=== PATIENT | female | born 1975 | race Caucasian/White ===

== ENCOUNTER 2018-06-29 20:01 | Emergency (ER) | payer OTHER, BC ==
[~2018-06-29] VITALS: Ht 170.2 cm; Wt 107.5 kg
[~2018-06-29 20:01] MED LIST: CETI10TA84 PO; FEXO3TAB; LISI-730 PO; MOME50SP5; NAPR-22 PO
[2018-06-29 20:04] VITALS: TEMP 37.3; Ht 170.2 cm; Wt 107.5 kg
[2018-06-29] MEDS ORDERED: TRAMADOL HCL 50 MG HOME PACK PO ONE (20:45)
[2018-06-29] MEDS ORDERED: CEPHALEXIN 500MG HOME PACK 1 EA BTL PO ONE (20:45)
[2018-06-29] MEDS ORDERED: CEPH500C PO (20:48)
[2018-06-29] MEDS ORDERED: TRAM-10 PO (20:48)
[2018-06-29 21:20] VITALS: BP 134/78; PULSE 102; O2SAT 99
--- NOTE | 2018-06-30 00:26 | EMERGENCY ROOM VISIT NOTE ---
History First contact with patient: 20:17 Chief Complaint: TOE PAIN, INJURY Stated Complaint: BROKEN 2 TOES RT FOOT History of Present Illness The patient is a 42 year old female who presents to the Emergency Room with complaints of injuries to her right great and second toe after accidentally dropping a table on her foot today at work. She reports that a desk was being moved on a zaira when it fell and landed on the foot. The patient was seen at the [facility] urgent [facility] [place] where x-rays were performed to find fractures of the 2 toes. She was instructed to come to the emergency department for further reevaluation. She denies any pain on exam, but does report pain rated a 4 out of 10 with weightbearing. She did notice some bleeding from under the nail of the great toe. She also reports that the tip of the toes are swollen and bruised. Review of Systems 10 system review was performed and was negative except for pertinent positives and negatives as indicated in history of present illness Past Medical/Surgical History Medical Problems: (1) Fracture of multiple toes (2) Hypertension Medical Problems: (1) Fracture of multiple toes (2) Hypertension Surgical Problems: (1) History of orthopedic surgery (2) History of partial hysterectomy (3) History of sinus surgery Family History FH: diabetes mellitus FH: hypertension Social History Smoking Status: Never Smoker Alcohol Use: none Marital Status: Housing Status: lives with family Occupation Status: employed Current/Historical Medications Scheduled Cephalexin Monohydrate (Keflex), 500 MG PO TID Cetirizine (Zyrtec), 10 MG PO DAILY Lisinopril (Lisinopril), 2.5 MG PO DAILY Mometasone Furoate (Nasonex), 1 SPRAY NA DAILY Naproxen (Naprosyn), Unknown Dose PO BID Scheduled PRN Tramadol (Ultram), 1 TAB PO Q4H PRN for Pain Miscellaneous Medications Fexofenadine HCl (Mucinex Allergy) Physical Exam Vital Signs Date Time Temp Pulse Resp B/P (MAP) Pulse Ox O2 Delivery O2 Flow Rate FiO2 06/29/18 21:20 102 20 134/78 99 06/29/18 20:04 37.3 110 18 142/89 95 Room Air Physical Exam CONSTITUTIONAL: Healthy and well nourished. Alert and oriented X 3 with positive affect. Patient does not appear in any acute distress, except when removing the bandages. HEENT: Normocephalic, atraumatic. Pupils equal, round and reactive. NECK: Full active range of motion without discomfort. MUSCULOSKELETAL: Examination of the right great toe does not show any lacerations of the soft tissue. The nail plate is not subluxed. There is blood under the nail that is draining from both sides and distal edge of the nail. Examination of the second toe does not show any lacerations. A mild abrasion is noted to the proximal nail fold. Both toes are edematous and ecchymotic. She has no tenderness to palpation of the base of the toes or forefoot. Capillary refill of the toes is less than 2 seconds. INTEGUMENTARY: No rash or other significant dermatologic conditions noted. NEUROLOGIC: Both toes are hyperesthetic. Medical Decision & Procedures ER Provider Diagnostic Interpretation: I did review x-rays that the patient brought on disc, showing fractures through the distal phalanges. No fracture extension to the IP or DIP joints. No joint dislocations noted. Medications Administered Medications (Trade) Dose Ordered Sig/Josr Route Start Time Stop Time Status Last Admin Dose Admin Cephalexin Monohydrate (Keflex 500MG Home Pack) 1 homepack NOW ONCE PO 06/29/18 20:45 06/29/18 20:47 DC 06/29/18 20:55 1 HOMEPACK Tramadol HCl (Ultram Home Pack) 1 homepack UD ONCE PO 06/29/18 20:45 06/29/18 20:47 DC 06/29/18 20:55 1 HOMEPACK ED Course Patient history and physical exam were performed. Nurse's notes were reviewed. Vital signs were reviewed, showing a blood pressure 142/89. The patient denies any pain, although she has notable discomfort when attempting to remove the dressings on the toes. I did review x-rays that the patient brought with her on disc, showing transverse fractures through the distal phalanges of both toes. The patient will be provided a home pack and prescription for Keflex. She was encouraged to ice and elevate the foot for swelling and pain. Ibuprofen and Tylenol as needed for pain. The patient was provided a home pack and prescription for Ultram as needed for breakthrough pain as she was complaining of more pain at the time of discharge. She was advised that she could also paige tape the toes for additional support. She refused a postop shoe or crutches. She was instructed to follow-up with her Worker's Compensation approved orthopedic surgeon for further reevaluation. The patient was happy with plan of care, voiced understanding of all discharge instructions , and denied any significant pain at the time of discharge. Medical Decision [place] Drug Monitoring Program Search Results: patient reviewed within database, no issues identified Medication Reconcilliation Current Medication List: was personally reviewed by me Blood Pressure Screening Patient's blood pressure: Elevated blood pressure Blood pressure disposition: Elevated BP felt to be situational, Did not require urgent referral Impression Primary Impression: Open fracture of right great toe Additional Impressions: Fracture of second toe, right, closed Work related injury Departure Information Dispostion Home / Self-Care Condition FAIR Prescriptions Tramadol (Ultram) 50 Mg Tab 1 TAB PO Q4H Y for Pain, #15 TAB For Initial Treatment Prov: Blake Dalton PA 06/29/18 Cephalexin Monohydrate (Keflex) 500 Mg Cap 500 MG PO TID for 7 Days, #21 CAP Prov: Blake Dalton PA 06/29/18 Forms WORK / SCHOOL INSTRUCTIONS, HOME CARE DOCUMENTATION FORM, IMPORTANT VISIT INFORMATION Patient Instructions My [facility] Moment Additional Instructions Keep the great toe covered with an antibiotic ointment and dressing. Ice and elevate the toes/foot for swelling and pain. Ibuprofen 800 mg and/or Tylenol 1000 mg every 8 hours. You may also alternate these medications for more effective pain relief: Ibuprofen --4 HRS--> Tylenol --4 HRS--> ibuprofen --4 HRS--> Tylenol .... Ultram if needed for worse pain. Follow-up with your Worker's Compensation approved orthopedic surgeon for further reevaluation and management. FOR WORK: Limited time on right foot until reevaluated by orthopedics. Problem Qualifiers Primary Impression: Open fracture of right great toe Encounter type: initial encounter Phalanx: distal Fracture alignment: nondisplaced Qualified Codes: S92.424B - Nondisplaced fracture of distal phalanx of right great toe, initial encounter for open fracture Additional Impressions: Fracture of second toe, right, closed Encounter type: initial encounter Qualified Codes: S92.501A - Displaced unspecified fracture of right lesser toe(s), initial encounter for closed fracture
== END 2018-06-29 21:41 | disposition home or self-care (01) ==
LOC: C.EDB 20:03 → C.EDD 21:41
DX: S92.424B Nondisplaced fracture of distal phalanx of right great toe, initial encounter for open fracture (principal); S92.501A Displaced unspecified fracture of right lesser toe(s), initial encounter for closed fracture; W20.8XXA Other cause of strike by thrown, projected or falling object, initial encounter; Y93.89 Activity, other specified; Y99.0 Civilian activity done for income or pay; I10 Essential (primary) hypertension; Z90.710 Acquired absence of both cervix and uterus; Z83.3 Family history of diabetes mellitus; Z82.49 Family history of ischemic heart disease and other diseases of the circulatory system; Z79.899 Other long term (current) drug therapy

== ENCOUNTER 2021-07-03 15:39 | Observation (INO) ==
--- NOTE | 2021-07-03 16:05 | Emergency Department Note ---
Impression & Plan Leukocytosis, Lower gastrointestinal hemorrhage, BRBPR (bright red blood per rectum) ED Provider Note NAME: IRA LUBIN AGE: 45 SEX: F : 1975 ARRIVES VIA: Ambulance INFORMANT: Patient, ED PROVIDER(S): Kem Duran DO CHIEF COMPLAINT: GI Bleed HPI: Patient is a 45-year-old female who presents to the ER for bright red blood per rectum. She had hemorrhoidectomy performed on June [address] Ruggiero in [facility]. She notes that she was not feeling well today. She had 5 bowel movements of bright red blood. Initially she was tried have a bowel movement it was a large stool. She stopped going and did not pass the stool. Following this she has had 4 additional bowel movements of just blood. Is bright red. She admits to feeling weak and slightly sick to her stomach. No headache or change in vision. No chest pain or shortness of breath. No other exacerbating or remitting factors. She believes she has passed 4 pints of blood. One with each bowel movement. ROS: See above HPI for pertinent positives & negatives. A total of 10 systems reviewed and were otherwise negative. PAST MEDICAL HISTORY:See Below PAST SURGICAL HISTORY:See Below FAMILY HISTORY:See Below SOCIAL HISTORY:See Below HOME MEDICATIONS:See Below ALLERGIES:See Below VITALS:See Below PHYSICAL EXAMINATION: GENERAL: Sitting up in bed, alert, well appearing, well nourished, no distress, non-toxic EYE EXAM: normal conjunctiva. OROPHARYNX: no exudate, no erythema, lips, buccal mucosa, and tongue normal and mucous membranes are moist NECK: supple, no nuchal rigidity, no adenopathy, non-tender LUNGS: Clear to auscultation. Normal chest wall mechanics HEART: no murmurs, S1 normal and S2 normal ABDOMEN: abdomen soft, non-tender, normo-active bowel sounds, no masses, no rebound or guarding. RECTAL: External hemorrhoid present with suture string coming from the rectum. Dried blood around the rectum. UPPER EXTREMITIES: upper extremities are grossly normal. LOWER EXTREMITIES: No pitting edema. NEURO EXAM: Normal sensorium, cranial nerves II-XII grossly intact, normal speech, no gross weakness of arms, no gross weakness of legs. MEDICAL DECISION MAKING: Patient is a 45-year-old female who presents the ER for bright red blood per rectum status post hemorrhoidectomy surgery performed on the second in [facility] established blood was obtained. Labs show leukocytosis of 14,000. No significant anemia. Slight elevation in platelets. INR unremarkable. BMP with mild hypokalemia. LFTs bilirubin and troponin were negative. Covid was negative. Patient was typed and screened. CT abdomen pelvis showed questionab le diverticulitis and air perirectally/perianally. This was discussed with our general surgeon Dr. Mcdonald. He recommended discussion with Dr. Ruggiero who I discussed with over the phone. He agreed with antibiotics and [facility] at [facility]. We discussed with Dr. Mcdonald who admitted the patient. Triage Nursing notes reviewed. Limited review of prior medical records performed Vital Signs: reviewed and remarkable for tachy Differential diagnosis: Differential diagnosis includes etiologies such as diverticulitis, diverticulosis, AVM, coagulopathy, colitis, inflammatory bowel disease, malignancy, Jodie-Lim tear, esophagitis, peptic ulcer disease, variceal bleed, gastritis, epistaxis, fissure, hemorrhoids, as well as others were entertained. ER treatment provided: See below Diagnostics interpreted by me: ECG: Sinus tachycardia rate of 118 Left axis Inferior Q waves Prolonged QTC 461 Cardiac Monitoring: An order was placed for continuous cardiac monitoring. The monitor shows a rate of 112 with sinus rhythm. Laboratory studies: As stated above and show below. Imaging studies: CT abdomen pelvis as discussed above Consultation(s): Discussed with [facility] Ruggiero [facility] colorectal surgery and Dr. Mayur Mcdonald as discussed above Procedures: none Critical Care: None Past Med/Surg History Medical History (Updated 07/03/21 @ 23:02 by Kem Duran DO) Fracture of multiple toes Hypertension Surgical History History of orthopedic surgery History of partial hysterectomy History of sinus surgery Social History Smoking Status: Never smoker Hx Alcohol Use: Yes Alcohol type: beer, wine and hard liquor Hx Substance Use: No Preferred Language: Mauritanian Beliefs That Will Affect Care: None Current Living Situation: Family Other Information That Helps Us Care for You: No Feels Safe at Home: Yes Safety Concerns: Feels Safe At This Time Assistive Devices: Contacts Allergies Allergies Allergy/AdvReac Type Severity Reaction Status Date / Time No Known Allergies Allergy Unknown Verified 07/03/21 15:45 Home Meds Home Medications Medication Instructions Recorded Confirmed aspirin-caffeine 500 mg-32.5 mg 1 tab PO DAILY PRN 08/06/19 07/03/21 tablet (Nirmala [employer]) cetirizine 10 mg tablet 10 mg PO DAILY 08/06/19 07/03/21 chlorthalidone 25 mg tablet 12.5 mg PO QAM 08/06/19 07/03/21 multivitamin-ferrous 1 tab PO QAM 08/06/19 07/03/21 fumarate-folic acid 18 mg-400 mcg tablet (Centrum Women) estradiol 0.05 mg/24 hr weekly 1 patch TRANSDERMAL WK 07/03/21 07/03/21 transdermal patch lisinopril 2.5 mg tablet 2.5 mg PO QAM 07/03/21 07/03/21 metformin 500 mg tablet,extended 2,000 mg PO QAM 07/03/21 07/03/21 release 24 hr omeprazole 20 mg capsule,delayed 20 mg PO QAM 07/03/21 07/03/21 release oxycodone 10 mg tablet 10 mg PO Q4 PRN 07/03/21 07/03/21 Results & Data (ED) Vital Signs Vital Signs - 24 hr 07/03/21 15:46 07/03/21 15:48 07/03/21 15:56 Temperature 37.1 C Temperature Source Oral Pulse Rate 116 H 113 H Pulse Rate [Left Finger] Pulse Rate from SpO2 Sensor 117 H Pulse Rhythm Regular Pulse Strength Normal Respiratory Rate 20 17 Respiratory Effort / Characteristics Non-Labored Respiratory Depth Normal Respiratory Pattern Regular Blood Pressure 131/89 131/89 Blood Pressure [Right Arm] Blood Pressure Mean 103 103 Blood Pressure Mean [Right Arm] Blood Pressure Position Lying Pulse Oximetry 95 97 Oxygen Delivery Method Room Air Room Air Sepsis Recent Fever Within 48 Hours No Sepsis New/Unexplained Change in Mental Status N/A Sepsis Action Taken by Nursing No Action Required 07/03/21 16:01 07/03/21 16:15 07/03/21 16:30 Temperature Temperature Source Pulse Rate 122 H 111 H Pulse Rate [Left Finger] Pulse Rate from SpO2 Sensor 124 H 112 H Pulse Rhythm Pulse Strength Respiratory Rate 17 17 Respiratory Effort / Characteristics Respiratory Depth Respiratory Pattern Blood Pressure 115/62 97/68 L 119/89 Blood Pressure [Right Arm] Blood Pressure Mean 79 77 99 Blood Pressure Mean [Right Arm] Blood Pressure Position Pulse Oximetry 96 94 Oxygen Delivery Method Room Air Room Air Sepsis Recent Fever Within 48 Hours Sepsis New/Unexplained Change in Mental Status Sepsis Action Taken by Nursing 07/03/21 16:45 07/03/21 17:06 07/03/21 17:30 Temperature Temperature Source Pulse Rate 103 H 99 H Pulse Rate [Left Finger] Pulse Rate from SpO2 Sensor 103 H 99 H Pulse Rhythm Pulse Strength Respiratory Rate 16 16 Respiratory Effort / Characteristics Respiratory Depth Respiratory Pattern Blood Pressure 128/88 119/81 Blood Pressure [Right Arm] Blood Pressure Mean 101 93 Blood Pressure Mean [Right Arm] Blood Pressure Position Pulse Oximetry 95 98 97 Oxygen Delivery Method Room Air Sepsis Recent Fever Within 48 Hours Sepsis New/Unexplained Change in Mental Status Sepsis Action Taken by Nursing 07/03/21 17:33 07/03/21 18:00 07/03/21 18:30 Temperature Temperature Source Pulse Rate 101 H 114 H Pulse Rate [Left Finger] 102 H Pulse Rate from SpO2 Sensor 101 H 112 H Pulse Rhythm Pulse Strength Respiratory Rate 18 19 20 Respiratory Effort / Characteristics Respiratory Depth Respiratory Pattern Blood Pressure 119/87 Blood Pressure [Right Arm] 115/76 Blood Pressure Mean 97 Blood Pressure Mean [Right Arm] 89 Blood Pressure Position Pulse Oximetry 98 96 94 Oxygen Delivery Method Room Air Room Air Sepsis Recent Fever Within 48 Hours Sepsis New/Unexplained Change in Mental Status Sepsis Action Taken by Nursing Laboratory Data Result diagrams: 07/03/21 15:50 07/03/21 15:50 Lab Results 07/03/21 07/03/21 07/03/21 Range/Units 15:50 15:50 15:50 WBC 14.85 H (4.8-10.8) K/uL RBC 3.99 L (4.2-5.4) M/uL Hgb 12.7 (12.0-16.0) g/dL Hct 37.3 (37-47) % MCV 93.5 (80-100) fL MCH 31.8 (25-34) pg MCHC 34.0 (32-36) g/dL RDW Std Deviation 45.1 (36.4-46.3) fL RDW Coeff of Christine 13.1 (11.5-14.5) % Plt Count 451 H (130-400) K/uL MPV 9.1 (7.4-10.4) fL Immature Gran % (Auto) 0.4 % Neut % (Auto) 73.3 % Lymph % (Auto) 15.7 % Worth % (Auto) 7.4 % Eos % (Auto) 2.8 % Baso % (Auto) 0.4 % Neut # (Auto) 10.89 H (1.4-6.5) K/uL Lymph # (Auto) 2.33 (1.2-3.4) K/uL Worth # (Auto) 1.10 H (0.11-0.59) K/uL Eos # (Auto) 0.41 (0-0.5) K/uL Baso # (Auto) 0.06 (0-0.2) K/uL Immature Gran # (Auto) 0.06 H (0.00-0.02) K/uL PT 10.3 (9.0-12.0) Seconds INR 1.0 (0.9-1.1) APTT 24.0 (21.0-31.0) Seconds PTT Ratio 0.9 Sodium 137 (136-145) mmol/L Potassium 3.3 L (3.5-5.1) mmol/L Chloride 105 (98-107) mmol/L Carbon Dioxide 24 (21-32) mmol/L Anion Gap 8.0 (3-11) BUN 14 (7-18) mg/dl Creatinine 0.87 (0.6-1.2) mg/dl Est Cr Clr Drug Dosing 99.4 ml/min Est GFR ( Amer) 93.2 ml/min Est GFR (Non-Af Amer) 80.5 ml/min BUN/Creatinine Ratio 15.9 (10-20) Glucose 155 H (70-99) mg/dl Calcium 8.5 (8.5-10.1) mg/dl Total Bilirubin 0.2 (0.2-1) mg/dl AST 68 H (15-37) U/L ALT 78 (12-78) U/L Alkaline Phosphatase 61 (45-117) U/L Troponin I < 0.015 (0-0.045) ng/ml Total Protein 7.0 (6.4-8.2) gm/dl Albumin 3.0 L (3.4-5.0) gm/dl Globulin 4.0 (2.5-4.0) gm/dl Albumin/Globulin Ratio 0.8 L (0.9-2) COVID-19 Eval Order SARS-CoV-2 (PCR) (Negative) Blood Type Antibody Screen 07/03/21 07/03/21 07/03/21 Range/Units 17:30 18:05 18:05 WBC (4.8-10.8) K/uL RBC (4.2-5.4) M/uL Hgb (12.0-16.0) g/dL Hct (37-47) % MCV (80-100) fL MCH (25-34) pg MCHC (32-36) g/dL RDW Std Deviation (36.4-46.3) fL RDW Coeff of Christine (11.5-14.5) % Plt Count (130-400) K/uL MPV (7.4-10.4) fL Immature Gran % (Auto) % Neut % (Auto) % Lymph % (Auto) % Worth % (Auto) % Eos % (Auto) % Baso % (Auto) % Neut # (Auto) (1.4-6.5) K/uL Lymph # (Auto) (1.2-3.4) K/uL Worth # (Auto) (0.11-0.59) K/uL Eos # (Auto) (0-0.5) K/uL Baso # (Auto) (0-0.2) K/uL Immature Gran # (Auto) (0.00-0.02) K/uL PT (9.0-12.0) Seconds INR (0.9-1.1) APTT (21.0-31.0) Seconds PTT Ratio Sodium (136-145) mmol/L Potassium (3.5-5.1) mmol/L Chloride (98-107) mmol/L Carbon Dioxide (21-32) mmol/L Anion Gap (3-11) BUN (7-18) mg/dl Creatinine (0.6-1.2) mg/dl Est Cr Clr Drug Dosing ml/min Est GFR ( Amer) ml/min Est GFR (Non-Af Amer) ml/min BUN/Creatinine Ratio (10-20) Glucose (70-99) mg/dl Calcium (8.5-10.1) mg/dl Total Bilirubin (0.2-1) mg/dl AST (15-37) U/L ALT (12-78) U/L Alkaline Phosphatase (45-117) U/L Troponin I (0-0.045) ng/ml Total Protein (6.4-8.2) gm/dl Albumin (3.4-5.0) gm/dl Globulin (2.5-4.0) gm/dl Albumin/Globulin Ratio (0.9-2) COVID-19 Eval Order Covid19 at [facility] SARS-CoV-2 (PCR) NEGATIVE (Negative) Blood Type O Positive Antibody Screen NEGATIVE Administered Medications Acetaminophen (Acetaminophen 325 Mg Tab) 650 mg PO Q6H PRN PRN Reason: Pain & Pre PT Stop: 08/02/21 20:47 Last Admin: 07/03/21 21:27 Dose: 650 mg Documented by: [id number] Sodium Chloride (Nss 1000ml) 1,000 mls @ 125 mls/hr IV .Q8H ARAVIND Stop: 08/02/21 20:47 Last Admin: 07/03/21 21:27 Dose: 125 mls/hr Documented by: [id number] Discontinued Medications Sodium Chloride (Nss 1000ml) 2,000 mls @ 999 mls/hr IV .Q2H1M ARAVIND Stop: 07/03/21 18:15 Last Infusion: 07/03/21 18:24 Dose: 0 mls/hr Documented by: [id number] Admin: 07/03/21 16:15 Dose: 999 mls/hr Documented by: [id number] Piperacillin Sod/Tazobactam Sod (Zosyn) 4.5 gm in 120 mls @ 240 mls/hr IV NOW ONE Stop: 07/03/21 18:31 Last Infusion: 07/03/21 18:23 Dose: 0 mls/hr Documented by: [id number] Admin: 07/03/21 18:12 Dose: 240 mls/hr Documented by: [id number] Ioversol (Optiray 320 100ml) 93 ml IV ONCE ONE Stop: 07/03/21 17:01 Last Admin: 07/03/21 17:00 Dose: 93 ml Documented by: [id number] Imaging Data Radiologist's Impression: Abdomen/Pelvis CT 07/03/21 16:02 CT abd pelvis IV con only CLINICAL HISTORY: abd pain COMPARISON STUDY: None. TECHNIQUE: A dose lowering technique was utilized adhering to the principles of ALARA. CT DOSE: 886.75 mGy.cm FINDINGS: Lower chest: Limited evaluation of lung bases shows no evidence of acute abnormalities.. Liver: Mild diffuse decrease in attenuation of liver parenchyma is seen without focal lesions or intrahepatic biliary dilatation. Gallbladder: Unremarkable. Spleen: Normal in size and attenuation. Pancreas: Unremarkable. Adrenal glands: Unremarkable. Kidneys: There is symmetric renal cortical enhancement. The kidneys are normal in size without hydronephrosis. Pelvic viscera: Urinary bladder is partially decompressed which limits evaluation. Uterus is surgically absent. Bowel: The small bowel and colon are normal in course and caliber. Appendix is normal in caliber and gas filled. Mild diverticulosis of descending colon is seen with focal area of minimally increased fat stranding surrounding collapsed segment of the descending colon (2/42) which could be due to partial volume averaging or developing of diverticulitis. There is mild fat stranding and few small lymph nodes surrounding mesenteric root which might represent minimal panniculitis. Peritoneum: There is no intraperitoneal free air or abdominal ascites. Vasculature: The abdominal aorta is normal in course and caliber. Adenopathy: No retroperitoneal adenopathy is seen. Skeletal structures: Minimal degenerative changes of the spine. There is questionable areas of gas collection is seen within soft tissue surrounding distal rectum and anus (2/89). IMPRESSION: 1. Questionable areas of gas collection within the perirectal and perianal soft tissue without significant edema. Differential diagnosis might include Forner's gangrene, trauma or other etiology. Please correlate above-mentioned findings with prior history.. Report will be sent to emergency Department. 2. Mild panniculitis. 3. Minimal fat stranding surrounding focal loop of descending colon. Mild diverticulosis. Developing diverticulitis cannot be completely ruled out. ACT 112: Negative or not required by law. The above report was generated using voice recognition software. It may contain grammatical, syntax or spelling errors. Electronically signed by: Page Pickard DO 07/03/2021 5:28 PM Discharge Plan Visit Data Chief Complaint: Rectal Bleed Stated Complaint: hemorrhoid surgery ED Provider: Kem Duran Discharge Problem: Leukocytosis, Lower gastrointestinal hemorrhage, BRBPR (bright red blood per rectum) Patient Disposition: Admitted As Inpatient Discharge Instructions Interventions: ED Discharge Assessment Last Done: 07/03/21 20:20 Discharge Problem: Leukocytosis Qualifiers: Leukocytosis type: unspecified Qualified Code(s): D72.829 - Elevated white blood cell count, unspecified
[2021-07-03 16:12] LABS: Basophils # (auto) 0.06 K/uL (0-0.2); Basophils % (auto) 0.4 %; Eosinophils # (auto) 0.41 K/uL (0-0.5); Eosinophils % (auto) 2.8 %; Hematocrit (blood only) 37.3 % (37-47); Hemoglobin 12.7 g/dL (12.0-16.0); Immature Granulocytes # (auto) 0.06 K/uL (0.00-0.02); Immature Granulocytes % (auto) 0.4 %; Lymphocytes # (auto) 2.33 K/uL (1.2-3.4); Lymphocytes % (auto) 15.7 %; Mean Corpuscular Hemoglobin 31.8 pg (25-34); Mean Corpuscular Volume 93.5 fL (80-100); Mean Platelet Volume 9.1 fL (7.4-10.4); Monocytes % (auto) 7.4 %; Neutrophils # (auto) 10.89 K/uL (1.4-6.5); Neutrophils % (auto) 73.3 %; Platelet Count 451 K/uL (130-400); RDW Coefficient of Variation 13.1 % (11.5-14.5); RDW Standard Deviation 45.1 fL (36.4-46.3); Red Blood Count 3.99 M/uL (4.2-5.4); White Blood Count 14.85 K/uL (4.8-10.8)
[2021-07-03] MEDS ORDERED: SODIUM CHLORIDE 0.9% 1000ML 2,000 ML IV SCH (16:15)
[2021-07-03 16:20] LABS: Alanine Aminotransferase 78 U/L (12-78); Aspartate Aminotransferase 68 U/L (15-37); BUN Creatinine Ratio 15.9 (10-20); Blood Urea Nitrogen 14 mg/dl (7-18); Calcium 8.5 mg/dl (8.5-10.1); Carbon Dioxide 24 mmol/L (21-32); Chloride 105 mmol/L (98-107); Creatinine Clr Calc Pharmacy 99.4 ml/min; Est GFR (African American) 93.2 ml/min; Est GFR (Non-African American) 80.5 ml/min; Glucose 155 mg/dl (70-99); Potassium 3.3 mmol/L (3.5-5.1); Sodium 137 mmol/L (136-145)
[2021-07-03 16:25] LABS: Albumin Globulin Ratio 0.8 (0.9-2); Alkaline Phosphatase 61 U/L (45-117); Bilirubin,Total 0.2 mg/dl (0.2-1); Troponin I < 0.015 ng/ml (0-0.045)
[2021-07-03 16:36] LABS: Partial Thromboplastin Ratio 0.9; Prothrombin Time 10.3 Seconds (9.0-12.0)
[2021-07-03] MEDS ORDERED: OPTIRAY 320 100ml IV ONE (17:00)
--- NOTE | 2021-07-03 17:29 | CT Scan Report ---
CT abd pelvis IV con only CLINICAL HISTORY: abd pain COMPARISON STUDY: None. TECHNIQUE: A dose lowering technique was utilized adhering to the principles of ALARA. CT DOSE: 886.75 mGy.cm FINDINGS: Lower chest: Limited evaluation of lung bases shows no evidence of acute abnormalities.. Liver: Mild diffuse decrease in attenuation of liver parenchyma is seen without focal lesions or intr ahepatic biliary dilatation. Gallbladder: Unremarkable. Spleen: Normal in size and attenuation. Pancreas: Unremarkable. Adrenal glands: Unremarkable. Kidneys: There is symmetric renal cortical enhancement. The kidneys are normal in size without hydron ephrosis. Pelvic viscera: Urinary bladder is partially decompressed which limits evaluation. Uterus is surgical ly absent. Bowel: The small bowel and colon are normal in course and caliber. Appendix is normal in caliber and gas filled. Mild diverticulosis of descending colon is seen with focal area of minimally increased fa t stranding surrounding collapsed segment of the descending colon (42) which could be due to partia l volume averaging or developing of diverticulitis. There is mild fat stranding and few small lymph nodes surrounding mesenteric root which might represe nt minimal panniculitis. Peritoneum: There is no intraperitoneal free air or abdominal ascites. Vasculature: The abdominal aorta is normal in course and caliber. Adenopathy: No retroperitoneal adenopathy is seen. Skeletal structures: Minimal degenerative changes of the spine. There is questionable areas of gas collection is seen within soft tissue surrounding distal rectum an d anus (). IMPRESSION: 1. Questionable areas of gas collection within the perirectal and perianal soft tissue without signi ficant edema. Differential diagnosis might include Forner's gangrene, trauma or other etiology. Pleas e correlate above-mentioned findings with prior history.. Report will be sent to emergency Department . 2. Mild panniculitis. 3. Minimal fat stranding surrounding focal loop of descending colon. Mild diverticulosis. Developing diverticulitis cannot be completely ruled out. ACT 112: Negative or not required by law. The above report was generated using voice recognition software. It may contain grammatical, syntax o r spelling errors. Electronically signed by: Page Pickard DO 07/03/2021 5:28 PM
[2021-07-03] MEDS ORDERED: PIPERACILLIN/TAZOBACTAM 4.5 GM/120 ML BAG IV ONE (18:02)
[2021-07-03] MEDS ORDERED: PIPERACILL/TAZOBAC CONSULT ACTIVE PRN ×2 (18:02→20:48)
[2021-07-03] MEDS ORDERED: oxyCODONE HCL IR 5 MG TAB (IMMEDIATE RELEASE) PO PRN ×2 (20:48)
[2021-07-03] MEDS ORDERED: ONDANSETRON INJ 2 MG/ML 2 ML VIAL IV PRN (20:48)
[2021-07-03] MEDS: ACETAMINOPHEN 325 MG TAB PO PRN (21:27)
[2021-07-03] MEDS: SODIUM CHLORIDE 0.9% 1000ML 1,000 ML IV SCH (21:27)
[2021-07-03] MEDS: PIPERACILLIN/TAZOBACTAM 3.375 GM in DEXTROSE 5% 100 ML IV SCH (23:49)
[2021-07-04] MEDS: SODIUM CHLORIDE 0.9% 1000ML 1,000 ML IV SCH (04:31)
[2021-07-04 07:07] LABS: Basophils # (auto) 0.06 K/uL (0-0.2); Basophils % (auto) 0.9 %; Eosinophils # (auto) 0.43 K/uL (0-0.5); Eosinophils % (auto) 6.6 %; Hematocrit (blood only) 29.5 % (37-47); Immature Granulocytes # (auto) 0.02 K/uL (0.00-0.02); Immature Granulocytes % (auto) 0.3 %; Lymphocytes # (auto) 2.38 K/uL (1.2-3.4); Lymphocytes % (auto) 36.5 %; Mean Corpuscular Hemoglobin 31.4 pg (25-34); Mean Corpuscular Hgb Conc 33.9 g/dL (32-36); Mean Corpuscular Volume 92.8 fL (80-100); Mean Platelet Volume 8.6 fL (7.4-10.4); Monocytes # (auto) 0.61 K/uL (0.11-0.59); Monocytes % (auto) 9.4 %; Neutrophils # (auto) 3.02 K/uL (1.4-6.5); Neutrophils % (auto) 46.3 %; Platelet Count 355 K/uL (130-400); RDW Coefficient of Variation 13.1 % (11.5-14.5); RDW Standard Deviation 44.4 fL (36.4-46.3); Red Blood Count 3.18 M/uL (4.2-5.4); White Blood Count 6.52 K/uL (4.8-10.8)
[2021-07-04 07:09] VITALS: TEMP 98.2; O2SAT 96
[2021-07-04] MEDS: PIPERACILLIN/TAZOBACTAM 3.375 GM in DEXTROSE 5% 100 ML IV SCH (07:27)
[2021-07-04] MEDS: ACETAMINOPHEN 325 MG TAB PO PRN (07:27)
[2021-07-04 07:43] LABS: BUN Creatinine Ratio 13.7 (10-20); Calcium 7.6 mg/dl (8.5-10.1); Creatinine Clr Calc Pharmacy 126.5 ml/min; Est GFR (African American) 122.4 ml/min; Est GFR (Non-African American) 105.6 ml/min; Potassium 2.8 mmol/L (3.5-5.1)
[2021-07-04] MEDS ORDERED: CETIRIZINE HCL 10 MG TABLET PO SCH (09:00)
[2021-07-04] MEDS ORDERED: CHLORTHALIDONE 25 MG TAB PO SCH (09:00)
[2021-07-04] MEDS ORDERED: PANTOprazole 40 MG TAB PO SCH (09:00)
[2021-07-04 12:26] VITALS: BP 111/68; PULSE 102
--- NOTE | 2021-07-04 12:28 | History & Physical Report ---
Date of Service July 04, 2021 Assessment & Plan (1) BRBPR (bright red blood per rectum): Plan: -Will admit patient for observation due to her leukocytosis and air seen around the rectum -I think this is likely postsurgical, but if she worsens she may need exploratio n in OR -Her bleeding has essentially stopped, will repeat CBC in AM -Keep NPO for now, stool softeners Admission and Anticipated Discharge Date Admission Date: July 03, 2021 History of Present Illness Chief Complaint: Rectal bleeding Primary Care Provider: Abraham Thorne DO This is a 45 yo female who presents to the ER with c/o rectal bleeding. She had a hemorrhoidectomy by Dr. Ruggiero of [facility] in [place] on 06/25/21. She states yesterday she was straining to have a BM and noticed a lot of BRBPR with her BM. She had a few more BM's with blood and felt dizzy and called 911. She denies any increased pain around her surgical site. No drainage or pus noted. No fevers or chills. No dysuria. By the time she was in the ER her bleeding was much less. Allergies Allergy/AdvReac Type Severity Reaction Status Date / Time No Known Allergies Allergy Unknown Verified 07/03/21 15:45 Home Medications Medication Instructions Recorded Confirmed Type aspirin-caffeine 500 mg-32.5 mg 1 tab PO DAILY PRN 08/06/19 07/03/21 History tablet ([facility]) cetirizine 10 mg tablet 10 mg PO DAILY 08/06/19 07/03/21 History chlorthalidone 25 mg tablet 12.5 mg PO QAM 08/06/19 07/03/21 History multivitamin-ferrous 1 tab PO QAM 08/06/19 07/03/21 History fumarate-folic acid 18 mg-400 mcg tablet ([facility]) estradiol 0.05 mg/24 hr weekly 1 patch TRANSDERMAL WK 07/03/21 07/03/21 History transdermal patch lisinopril 2.5 mg tablet 2.5 mg PO QAM 07/03/21 07/03/21 History metformin 500 mg tablet,extended 2,000 mg PO QAM 07/03/21 07/03/21 History release 24 hr omeprazole 20 mg capsule,delayed 20 mg PO QAM 07/03/21 07/03/21 History release oxycodone 10 mg tablet 10 mg PO Q4 PRN 07/03/21 07/03/21 History ciprofloxacin HCl 500 mg tablet 500 mg PO BID #14 tab 07/04/21 Rx (Cipro) docusate sodium 100 mg capsule 100 mg PO BID #30 cap 07/04/21 Rx (Colace) metronidazole 500 mg tablet 500 mg PO Q8H 7 Days #21 tab 07/04/21 Rx (Flagyl) Past Med/Surg History Medical History Diabetes mellitus, type 2 Fracture of multiple toes Hypertension Surgical History History of orthopedic surgery History of partial hysterectomy History of sinus surgery Social History Smoking Status: Never smoker Hx Alcohol Use: Yes Alcohol type: beer, wine and hard liquor Hx Substance Use: No Preferred Language: Sinhala Beliefs That Will Affect Care: None Current Living Situation: Family Other Information That Helps Us Care for You: No Feels Safe at Home: Yes Safety Concerns: Feels Safe At This Time Assistive Devices: None Review of Systems Constitutional: no fever and no chills Eyes: no blind spots and no worsening vision Ear, Nose, Mouth, Throat: no ear pain and no hearing loss Respiratory: no cough and no dyspnea Cardiovascular: no chest pain and no dyspnea on exertion Gastrointestinal: + change in stools, + diarrhea/loose stools and + blood in stools; no abdominal pain, no nausea and no vomiting Genitourinary: no dysuria Musculoskeletal: no back pain and no neck pain Integumentary: no acne and no rash Neurologic: no headache(s) Psychiatric: no behavioral changes and no depression Hematologic / Lymphatic: no easy bleeding and no easy bruising Physical Exam Constitutional: WD/WN, vitals as above Eyes: PERRL, conjunctivae normal, anicteric sclerae ENMT: external ear and nose normal, oropharynx normal Neck: trachea midline, no thyromegaly Respiratory: normal respiratory effort, lungs clear to auscultation Cardiovascular: RRR, no murmur, no edema Gastrointestinal (Abdomen): Inspection/Auscultation: abdomen normal to inspection; abdomen not distended Percussion/Palpation: abdomen soft; abdomen nontender and no guarding Rectal Exam: + heme positive stool Digital rectal exam not performed due to recent surgery, no active bleeding, +one non- thrombosed hemorrhoid No skin changes on buttocks, no TTP on palpation of buttocks Musculoskeletal: no cyanosis or clubbing, extremities motor strength 5/5 Skin: no rashes, warm and dry Neurologic: PERRL, EOMI, accommodation nl, no face palsy, no dysarthria Psychiatric: A+Ox3, euthymic affect Results & Data Results & Data ([facility]) Vital Signs (Past 12 Hours) Vital Signs Temp Pulse Resp BP Pulse Ox 07/04/21 07:08 36.8 C 85 16 109/71 96 Laboratory Results WBC 14 Hgb 12.[address] A/P 07/03/21 IMPRESSION: 1. Questionable areas of gas collection within the perirectal and perianal soft tissue without significant edema. Differential diagnosis might include Forner's gangrene, trauma or other etiology. Please correlate above-mentioned findings with prior history.. Report will be sent to emergency Department. 2. Mild panniculitis. 3. Minimal fat stranding surrounding focal loop of descending colon. Mild diverticulosis. Developing diverticulitis cannot be completely ruled out. Code Status & VTE Plan VTE Prophylaxis Plan VTE Prophylaxis will be ordered: Yes PG Care Time/CCT Total # of Minutes Spent Total Time Spent with Patient: Total time spent is greater than 50% in coordination of care (as documented) at patient's floor/unit and/or counseling patient: Coding Level of Care Code INT OBSERVATION CARE 50M LVL 2 Diagnoses BRBPR (bright red blood per rectum) K62.5
--- NOTE | 2021-07-04 12:36 | Surgery Progress Note ---
Date of Service July 04, 2021 Assessment & Plan (1) BRBPR (bright red blood per rectum): Plan: -Her leukocytosis has resolved, continue Zosyn today, unlikely a post-operative soft tissue infection -Hgb did drop to 10.0, but I think this is a lag from her bleeding yesterday coupled with dilution from the IVF -Ok for diet -Will discharge her later today with one week of Cipro/Flagyl -Instructed she needs to call for follow up with her colorectal surgeon when she gets home -Stool softeners and high fiber diet Admission and Anticipated Discharge Date Admission Date: July 03, 2021 Subjective Pt seen and examined. Pain at baseline from after surgery. Had a small amount of bleeding with BM this AM. NO fever or chills. No buttock pain. Afebrile. Review of Systems Constitutional: no fever and no chills Physical Exam Constitutional: WD/WN, vitals as above Eyes: PERRL, conjunctivae normal, anicteric sclerae ENMT: external ear and nose normal, oropharynx normal Neck: trachea midline, no thyromegaly Respiratory: normal respiratory effort, lungs clear to auscultation Cardiovascular: RRR, no murmur, no edema Gastrointestinal (Abdomen): Inspection/Auscultation: abdomen normal to inspection; abdomen not distended Percussion/Palpation: abdomen soft; abdomen nontender and no guarding Rectal Exam: + heme positive stool Digital rectal exam not performed due to recent surgery, no active bleeding, +one non- thrombosed hemorrhoid No skin changes on buttocks, no TTP on palpation of buttocks Musculoskeletal: no cyanosis or clubbing, extremities motor strength 5/5 Skin: no rashes, warm and dry Neurologic: PERRL, EOMI, accommodation nl, no face palsy, no dysarthria Psychiatric: A+Ox3, euthymic affect Results & Data ([facility]) Vital Signs (Past 12 Hours) Vital Signs Temp Pulse Pulse Resp BP BP Pulse Ox 07/04/21 12:25 36.8 C 85 102 H 16 109/71 111/68 96 07/04/21 07:08 36.8 C 85 16 109/71 96 Laboratory Results WBC 6.57 Hgb 10.0 PG Care Time/CCT Total # of Minutes Spent Total Time Spent with Patient: Total time spent is greater than 50% in coordination of care (as documented) at patient's floor/unit and/or counseling patient: Coding Level of Care Code 85701 Subseq Hosp Care Lvl 1 Diagnoses BRBPR (bright red blood per rectum) K62.5
--- NOTE | 2021-07-04 14:05 | Electrocardiogram Report ---
Test Reason : Blood Pressure : / mmHG Vent. Rate : 118 BPM Atrial Rate : 059 BPM P-R Int : 000 ms QRS Dur : 086 ms QT Int : 458 ms P-R-T Axes : 000 -50 029 degrees QTc Int : 641 ms Sinus tachycardia Left anterior fascicular block Poor R wave progression, consider anterior UT vs. lead placement vs. LVH Prolonged QT Abnormal ECG When compared with ECG of 02-APR-2016 12:49, Left anterior fascicular block is now Present Confirmed by Dat Boyd ([id number]) on 07/04/2021 2:05:03 PM Referred By: REFERRED SELF Confirmed By:Oral Boyd
[2021-07-04] MEDS ORDERED: DOCUSATE SODIUM 100 MG CAP PO SCH (21:00)
== END 2021-07-04 13:52 | disposition home or self-care (01) ==
LOC: 3W 15:39 → ED 15:39 → 3W 20:20